=== PATIENT | female | born 1980 | race Caucasian/White ===

== ENCOUNTER 2017-10-24 15:20 | Emergency (ER) | payer MEDICAID ==
[~2017-10-24] VITALS: Ht 170.2 cm; Wt 82.0 kg
[2017-10-24 15:24] VITALS: BP 165/86; PULSE 63; RESP 14; TEMP 98.5; O2SAT 100
== END 2017-10-24 17:29 | disposition left against medical advice (07) ==
LOC: NED 15:20
DX: Z53.21 Procedure and treatment not carried out due to patient leaving prior to being seen by health care provider (principal)
CPT/HCPCS: 99281